=== PATIENT | female | born 1945 | race Caucasian/White ===

== ENCOUNTER 2023-07-26 09:29 | Outpatient (CLI) | payer MEDICARE ==
[2023-07-26] MEDS ORDERED: Iopamidol 370 76% 100 ML VIAL ONE (15:31)
== END 2023-07-26 09:30 | disposition home or self-care (01) ==
LOC: CT 09:29
PROVIDERS: ATTEND Nurse Practitioner Family
DX: R14.0 Abdominal distension (gaseous) (principal); K21.9 Gastro-esophageal reflux disease without esophagitis; K59.00 Constipation, unspecified; R19.8 Other specified symptoms and signs involving the digestive system and abdomen
CPT/HCPCS: 74178; 82565; Q9967

== ENCOUNTER 2023-12-20 14:13 | Outpatient (CLI) | payer MEDICARE | END 2023-12-20 14:14 | disposition home or self-care (01) | LOC: BICRAD 14:13 | PROVIDERS: ATTEND Nurse Practitioner Family | DX: M25.562 Pain in left knee (principal); M17.12 Unilateral primary osteoarthritis, left knee; I10 Essential (primary) hypertension; G62.9 Polyneuropathy, unspecified | CPT/HCPCS: 36415; 83880; 85025; 85379; 86787 ==